=== PATIENT | female | born 1995 | race American Indian/Alaskan Native ===

== ENCOUNTER 2019-02-24 20:27 | Emergency (ER) | payer OTHER ==
[2019-02-24] MEDS ORDERED: BOOSTRIX IM ONE ×2 (20:56→23:09)
--- NOTE | 2019-02-24 21:00 | Emergency Department Report ---
Blank Doc - Documentation Documentation: stepped on a eva staple and thinks its still in side
[2019-02-24] MEDS ORDERED: IBUPROFEN PO ONE (22:29)
[2019-02-24] MEDS ORDERED: NORCO 5/325 PO ONE (22:29)
[2019-02-24] MEDS ORDERED: ZOFRAN ODT PO ONE (22:30)
--- NOTE | 2019-02-24 22:32 | Emergency Department Report ---
ED Lower Extremity HPI - General Chief Complaint: Extremity Injury, Lower Stated Complaint: STEPPED ON A JAY STAPLE RT FOOT Time Seen by Provider: 02/24/19 20:54 Source: patient Mode of arrival: Ambulatory Limitations: No Limitations - History of Present Illness Initial Comments: Patient is a 33-year-old white female with a history of idiopathic intracranial hypertension (IIH) who presents to the ED with complaint of acute onset of persistent severe right plantar foot pain with a puncture wound after she stepped onto is staple on a parking lot 24 hours ago. Patient states that the pain is worse such that she is unable to bear weight on the right foot and suspected that there may be a foreign object still in her right foot. Patient denies numbness and tingling on the right foot, fever, chills, nausea, vomiting, dizziness, shortness of breath or fall and change in vision. MD Complaint: foot injury (Right plantar foot puncture wound) -: Sudden, hour(s) (24), During the night Injury: Foot: Right (right plantar foot puncture wound) Type of Injury: laceration Place: street/outdoors, other Severity: severe Severity scale (0 -10): 7 Improves With: nothing Worsens With: weight bearing, movement, palpation Context: direct blow, walking, stepped on nail Associated Symptoms: able to partially bear weight, ambulatory. denies: swelling, numbness, tingling Treatments Prior to Arrival: NSAIDS - Related Data Previous Rx's Medication Instructions Recorded Last Taken Type Acetaminophen/Codeine [Tylenol 1 tab PO Q6H PRN #12 tab 02/24/19 Unknown Rx /Codeine # 3 tab] Ciprofloxacin HCl [Ciprofloxacin 500 mg PO Q12H #20 tab 02/24/19 Unknown Rx TAB] Ibuprofen [Motrin] 800 mg PO Q8HR PRN #20 tablet 02/24/19 Unknown Rx Allergies Allergy/AdvReac Type Severity Reaction Status Date / Time No Known Allergies Allergy Unverified 02/24/19 20:51 ED Review of Systems ROS: Stated complaint: STEPPED ON A JAY STAPLE RT FOOT Other details as noted in HPI Comment: All other systems reviewed and negative Constitutional: no symptoms reported, see HPI. denies: diaphoresis, fever, weakness Eyes: as per HPI. denies: eye discharge, vision change ENT: as per HPI. denies: throat pain, dental pain, hearing loss Respiratory: no symptoms reported, see HPI. denies: cough, orthopnea, shortness of breath, SOB with exertion, SOB at rest Cardiovascular: as per HPI. denies: chest pain, palpitations, dyspnea on exertion, syncope, paroxysmal nocturnal dyspnea Endocrine: no symptoms reported, see HPI. denies: excessive sweating, flushing, increased hunger, increased thirst, increased urine Gastrointestinal: as per HPI. denies: abdominal pain, nausea, constipation, hematemesis, hematochezia Genitourinary: as per HPI. denies: urgency, dysuria, frequency, hematuria Musculoskeletal: as per HPI, joint swelling (right plantar foot), arthralgia (Right plantar foot), other (puncture wound of right plantar foot). denies: back pain Skin: as per HPI, other (Puncture wound of right plantar foot). denies: rash, lesions, change in color, change in hair/nails, pruritus Neurological: as per HPI. denies: headache, paresthesias, confusion, abnormal gait, vertigo Psychiatric: as per HPI Hematological/Lymphatic: as per HPI ED Past Medical Hx - Past Medical History Hx Congestive Heart Failure: Yes Hx Asthma: Yes Additional medical history: eczema, IHH - Surgical History Additional Surgical History: x2, eye surgery - Social History Smoking Status: Current Every Day Smoker Substance Use Type: None - Medications Home Medications: Home Medications Medication Instructions Recorded Confirmed Last Taken Type Acetaminophen/Codeine [Tylenol 1 tab PO Q6H PRN #12 tab 02/24/19 Unknown Rx /Codeine # 3 tab] Ciprofloxacin HCl [Ciprofloxacin 500 mg PO Q12H #20 tab 02/24/19 Unknown Rx TAB] Ibuprofen [Motrin] 800 mg PO Q8HR PRN #20 tablet 02/24/19 Unknown Rx ED Physical Exam - General Limitations: No Limitations General appearance: alert, in no apparent distress - Head Head exam: Present: atraumatic, normocephalic, normal inspection - Eye Eye exam: Present: normal appearance, PERRL, EOMI Pupils: Present: normal accommodation - ENT ENT exam: Present: normal exam, normal orophraynx, mucous membranes moist, TM's normal bilaterally, normal external ear exam - Neck Neck exam: Present: normal inspection, full ROM. Absent: tenderness, lymphadenopathy - Respiratory Respiratory exam: Present: normal lung sounds bilaterally, respiratory distress. Absent: chest wall tenderness, accessory muscle use - Cardiovascular Cardiovascular Exam: Present: regular rate, normal rhythm, normal heart sounds - GI/Abdominal GI/Abdominal exam: Present: soft. Absent: tenderness, guarding, rebound, hypoactive bowel sounds - Rectal Rectal exam: Present: deferred - Back Exam Back exam: Present: full ROM, tenderness (right plantar foot due to a puncture wound). Absent: CVA tenderness (L), muscle spasm, paraspinal tenderness - Neurological Exam Neurological exam: Present: alert, oriented X3, CN II-XII intact, normal gait, reflexes normal - Psychiatric Psychiatric exam: Present: normal affect - Skin Skin exam: Present: warm, dry, normal color, other (Right plantar foot puncture wound) ED Course Vital Signs 02/24/19 20:33 Temperature 98.3 F Pulse Rate 90 Respiratory 18 Rate Blood Pressure 143/78 O2 Sat by Pulse 100 Oximetry - Reevaluation(s) Reevaluation #1: 02/24/19 22:48 Patient is alert and oriented 3 and is not in distress but in pain. The patient's vital signs are stable and unremarkable. Patient was treated for pain in the ED and also received tetanus booster vaccination. The patient was discharged home on pain medications and prophylactic antibiotic, ciprofloxacin 500 mg twice a day for 10 days. Patient advised to follow-up with her primary care physician in 5-7 days for reevaluation or return to the ED immediately if symptoms get worse. ED Lower Extremity MDM - Radiology Data Radiology results: report reviewed, image reviewed No fractures or foreign bodies in the right foot - Medical Decision Making If Plantar Puncture Wound, Discussed with Patient: Risk of Infection, Risk of Foreign Body in W, If X-Rays would be helpfu (Patient agreed to have x-ray performed, and was negative for foreign bodies) Patient is alert and oriented 3 and is not in distress with normal vital signs. The right foot x-ray shows no acute fractures or foreign bodies in the tissues of the right foot. Patient was treated for pain in the ED and also given tetanus vaccination.. The patient was discharged home on pain medications and is allergic to antibiotics ciprofloxacin 500 mg twice a day for 10 days. Patient advised to return to the ED immediately if symptoms get worse, otherwise follow-up with her primary care physician in 5-7 days for reevaluation. - Differential Diagnosis Punctrue wound, Foreign bodies in plantar foot, foot fracture Critical care attestation.: If time is entered above; I have spent that time in minutes in the direct care of this critically ill patient, excluding procedure time. ED Disposition Clinical Impression: Puncture wound of right foot Qualifiers: Encounter type: initial encounter Qualified Code(s): S91.331A - Puncture wound without foreign body, right foot, initial encounter Disposition: TO HOME OR SELFCARE Is pt being admited?: No Does the pt Need Aspirin: No Condition: Stable Instructions: Puncture Wound (ED) Additional Instructions: TAKE MEDICATIONS WITH FOOD, DRINK PLENTY OF FLUIDS AND FOLLOW UP WITH YOUR PRIMARY CARE PHYSICIAN ADVISED. RETURN TO THE ED IMMEDIATELY IF SYMPTOMS GET WORSE. Prescriptions: Ciprofloxacin HCl [Ciprofloxacin TAB] 500 mg PO Q12H #20 tab Ibuprofen [Motrin] 800 mg PO Q8HR PRN #20 tablet PRN Reason: Pain , Severe (7-10) Acetaminophen/Codeine [Tylenol /Codeine # 3 tab] 1 tab PO Q6H PRN #12 tab PRN Reason: Pain , Severe (7-10) Forms: Work/School Release Form(ED) Time of Disposition: 23:09 Print Language: BAHAMIAN
--- NOTE | 2019-02-24 22:37 | XRay Report ---
PROCEDURE: XR FOOT 3+V RT TECHNIQUE: Right foot 3 views HISTORY: stepped on eva staple and thinks its still in th COMPARISONS: FINDINGS: No fracture identified. No radiopaque foreign body seen. Joint spaces are within normal limits. IMPRESSION: Negative no fracture or foreign body identified. This document is electronically signed by Anthony Rice MD., Feb 24 2019 10:35:10 PM ET
[2019-02-24 23:24] VITALS: BP 149/87
== END 2019-02-24 23:24 | disposition home or self-care (01) ==
LOC: ED 20:27
DX: S91.331A Puncture wound without foreign body, right foot, initial encounter (principal); J45.909 Unspecified asthma, uncomplicated; F17.200 Nicotine dependence, unspecified, uncomplicated; W22.09XA Striking against other stationary object, initial encounter; Y93.89 Activity, other specified; Y92.481 Parking lot as the place of occurrence of the external cause; Y99.8 Other external cause status
CPT/HCPCS: 90471; 90715; Q0162

== ENCOUNTER 2019-03-26 12:46 | Emergency (ER) | payer SELFPAY ==
--- NOTE | 2019-03-26 13:04 | Emergency Department Report ---
Blank Doc - Documentation Documentation: This is a 24-year-old female that presents with sore throat. This initial assessment/diagnostic orders/clinical plan/treatment(s) is/are subject to change based on patient's health status, clinical progression and re- assessment by fellow clinical providers in the ED. Further treatment and workup at subsequent clinical providers discretion. Patient/guardians urged not to elope from the ED as their condition may be serious if not clinically assessed and managed. Initial orders include: 1- Patient sent to [facility] for further evaluation and treatment 2- strep swab
[2019-03-26 13:05] VITALS: BP 149/86
--- NOTE | 2019-03-26 13:47 | Emergency Department Report ---
ED ENT HPI - General Chief complaint: Sore Throat Stated complaint: SORE THROAT/COUGH/WEAKNESS Time Seen by Provider: 03/26/19 13:03 Source: patient Mode of arrival: Ambulatory Limitations: No Limitations - History of Present Illness Initial comments: This is a 24 year-old female who presents to the emergency room with a sore throat and weakness for 3 days. Past medical history of asthma, eczema, and CHF. Patient states she is taking NyQuil and DayQuil with minimal relief. She also reports a cough. Denies fever, nausea, vomiting, and diarrhea. MD complaint: sore throat Onset/Timin -: days(s) Location: throat Severity: moderate Severity scale (0 -10): 9 Quality: aching Consistency: intermittent Improves with: none Worsens with: swallowing, eating Associated Symptoms: cough, pain with swallowing, sore throat. denies: fever, gum swelling, toothache, tinnitus, hearing loss, discharge from ear, rhinorrhea - Related Data Previous Rx's Medication Instructions Recorded Last Taken Type Acetaminophen/Codeine [Tylenol 1 tab PO Q6H PRN #12 tab 02/24/19 Unknown Rx /Codeine # 3 tab] Ciprofloxacin HCl [Ciprofloxacin 500 mg PO Q12H #20 tab 02/24/19 Unknown Rx TAB] Ibuprofen [Motrin] 800 mg PO Q8HR PRN #20 tablet 02/24/19 Unknown Rx Benzocaine/Mentho [Cepacol X 8 each MM Q3H PRN #2 packet 03/26/19 Unknown Rx Strength] Benzonatate [Tessalon Perles] 100 mg PO Q8HR PRN #30 capsule 03/26/19 Unknown Rx methylPREDNISolone [Medrol 4MG 4 mg PO DAILY #1 tab.ds.pk 03/26/19 Unknown Rx DOSEPAK (21 tabs)] Allergies Allergy/AdvReac Type Severity Reaction Status Date / Time No Known Allergies Allergy Verified 03/26/19 13:00 ED Dental HPI - General Chief complaint: Sore Throat Stated complaint: SORE THROAT/COUGH/WEAKNESS Time Seen by Provider: 03/26/19 13:03 Source: patient Mode of arrival: Ambulatory Limitations: No Limitations - Related Data Previous Rx's Medication Instructions Recorded Last Taken Type Acetaminophen/Codeine [Tylenol 1 tab PO Q6H PRN #12 tab 02/24/19 Unknown Rx /Codeine # 3 tab] Ciprofloxacin HCl [Ciprofloxacin 500 mg PO Q12H #20 tab 02/24/19 Unknown Rx TAB] Ibuprofen [Motrin] 800 mg PO Q8HR PRN #20 tablet 02/24/19 Unknown Rx Benzocaine/Mentho [Cepacol X 8 each MM Q3H PRN #2 packet 03/26/19 Unknown Rx Strength] Benzonatate [Tessalon Perles] 100 mg PO Q8HR PRN #30 capsule 03/26/19 Unknown Rx methylPREDNISolone [Medrol 4MG 4 mg PO DAILY #1 tab.ds.pk 03/26/19 Unknown Rx DOSEPAK (21 tabs)] Allergies Allergy/AdvReac Type Severity Reaction Status Date / Time No Known Allergies Allergy Verified 03/26/19 13:00 ED Review of Systems ROS: Stated complaint: SORE THROAT/COUGH/WEAKNESS Other details as noted in HPI Constitutional: denies: chills, fever ENT: throat pain, congestion. denies: ear pain, dental pain, hearing loss, epistaxis Respiratory: cough. denies: shortness of breath, wheezing Cardiovascular: denies: chest pain, palpitations Gastrointestinal: denies: abdominal pain, nausea, diarrhea Skin: denies: rash, lesions Neurological: denies: headache, weakness, paresthesias Psychiatric: denies: anxiety, depression ED Past Medical Hx - Past Medical History Previous Medical History?: Yes Hx Congestive Heart Failure: Yes Hx Asthma: Yes Additional medical history: eczema, IHH - Surgical History Past Surgical History?: Yes Additional Surgical History: x2, eye surgery - Social History Smoking Status: Current Every Day Smoker Substance Use Type: Alcohol, Marijuana - Medications Home Medications: Home Medications Medication Instructions Recorded Confirmed Last Taken Type Acetaminophen/Codeine [Tylenol 1 tab PO Q6H PRN #12 tab 02/24/19 Unknown Rx /Codeine # 3 tab] Ciprofloxacin HCl [Ciprofloxacin 500 mg PO Q12H #20 tab 02/24/19 Unknown Rx TAB] Ibuprofen [Motrin] 800 mg PO Q8HR PRN #20 tablet 02/24/19 Unknown Rx Benzocaine/Mentho [Cepacol X 8 each MM Q3H PRN #2 packet 03/26/19 Unknown Rx Strength] Benzonatate [Tessalon Perles] 100 mg PO Q8HR PRN #30 capsule 03/26/19 Unknown Rx methylPREDNISolone [Medrol 4MG 4 mg PO DAILY #1 tab.ds.pk 03/26/19 Unknown Rx DOSEPAK (21 tabs)] ED Physical Exam - General Limitations: No Limitations General appearance: alert, in no apparent distress, obese (morbidly) - ENT ENT exam: Present: mucous membranes moist, TM's normal bilaterally, normal external ear exam, other (negative sinus tenderness). Absent: normal orophraynx (erythematous posterior pharynx, uvula midline without exudate) - Neck Neck exam: Present: normal inspection - Respiratory Respiratory exam: Present: normal lung sounds bilaterally. Absent: respiratory distress - Cardiovascular Cardiovascular Exam: Present: regular rate, normal rhythm. Absent: systolic murmur, diastolic murmur, rubs, gallop - GI/Abdominal GI/Abdominal exam: Present: soft, normal bowel sounds. Absent: distended, tenderness, guarding, rebound, rigid - Neurological Exam Neurological exam: Present: alert, oriented X3 - Psychiatric Psychiatric exam: Present: normal affect, normal mood - Skin Skin exam: Present: warm, dry, intact, normal color. Absent: rash ED Course Vital Signs 03/26/19 13:01 Temperature 98.5 F Pulse Rate 98 H Respiratory 16 Rate Blood Pressure 149/86 O2 Sat by Pulse 99 Oximetry ED Medical Decision Making - Lab Data Lab Results 03/26/19 Range/Units Unknown Group A Strep Rapid Positive A (Negative) - Medical Decision Making Patient examined by me and stable. No distress noted. Rapid strep obtained and positive for strep. Vitals stable. Given bicillin I-A 1.2 mL IM once in ER. Start Medrol Dosepak, benzonatate, and Cepacol. Take Tylenol or ibuprofen for pain. Discussed plan with patient and she agreed with plan to treat outpatient. Discharged home. Return to work tomorrow. Follow up with PCP in 48-72 hours. Critical care attestation.: If time is entered above; I have spent that time in minutes in the direct care of this critically ill patient, excluding procedure time. ED Disposition Clinical Impression: Acute streptococcal pharyngitis, Sore throat Disposition: TO HOME OR SELFCARE Is pt being admited?: No Does the pt Need Aspirin: No Condition: Stable Instructions: Strep Throat (ED) Additional Instructions: Expect symptoms to improve within 3 or 4 days. There is no need for bed rest or isolation. Use Tylenol or ibuprofen for symptoms of sore throat, headache, and fever. Return to work in 24 hours of taking antibiotics. Follow up with Primary Care Provider in 48-72 hours. Prescriptions: Benzocaine/Mentho [Cepacol X Strength] 8 each MM Q3H PRN #2 packet PRN Reason: Sore Throat methylPREDNISolone [Medrol 4MG DOSEPAK (21 tabs)] 4 mg PO DAILY #1 tab.ds.pk Benzonatate [Tessalon Perles] 100 mg PO Q8HR PRN #30 capsule PRN Reason: Cough Referrals: [facility] [Outside] - 3-5 Days [facility] [Outside] - 3-5 Days [facility] [Outside] - 3-5 Days Forms: Work/School Release Form(ED) Time of Disposition: 14:12
[2019-03-26] MEDS ORDERED: BICILLIN L-A IM ONE (14:07)
== END 2019-03-26 14:28 | disposition home or self-care (01) ==
LOC: ED 12:46
DX: J02.0 Streptococcal pharyngitis (principal); J45.909 Unspecified asthma, uncomplicated; I50.9 Heart failure, unspecified; F17.200 Nicotine dependence, unspecified, uncomplicated; F12.10 Cannabis abuse, uncomplicated
CPT/HCPCS: 87430; 96372; 99283; J0561